=== PATIENT | male | born 1960 | race Caucasian/White ===

== ENCOUNTER 2022-05-20 15:25 | Inpatient (IN) | payer BC ==
[~2022-05-20] VITALS: Ht 7.6 cm; Wt 115.9 kg
[2022-05-20 17:12] LABS: BASO # 0.1 K/mm3 (0.0-0.2); BASO % 0.5 % (0.0-2.0); EOS # 0.3 K/mm3 (0.0-0.7); EOS % 3.1 % (0.0-4.0); GRAN # 8.5 K/mm3 (1.4-6.5); GRAN % 80.3 % (42.2-75.2); HEMOGLOBIN 17.1 g/dl (13.5-18.0); LYMPH # 0.7 K/mm3 (1.2-3.4); MEAN CELL VOLUME 88 fl (80.0-100.0); MEAN CORPUSCULAR HEMOGLOBIN 29 pg (27-31); MEAN CORPUSCULAR HGB CONC 33 g/dl (33.0-37.0); MEAN PLATELET VOLUME 9.1 fl (7.4-10.4); MONO # 0.9 K/mm3 (0.1-0.6); MONO % 8.6 % (1.7-9.3); PLATELET COUNT 273 K/mm3 (130-400); RED BLOOD COUNT 5.94 M/mm3 (4.20-5.60); REDCELL DISTRIBUTION WIDTH-CV 14.5 % (11.5-14.5)
[2022-05-20 17:15] LABS: HEMATOCRIT 52.1 % (42.0-52.0)
[2022-05-20 17:20] LABS: PROTHROMBIN TIME 11.7 SECONDS (9.7-12.8)
[2022-05-20 17:23] LABS: PARTIAL THROMBOPLASTIN TIME 34.6 SECONDS (26.0-37.0)
[2022-05-20 17:29] LABS: CALCIUM 10.3 mg/dL (8.4-10.2); CREATININE, serum 1.43 mg/dL (0.72-1.25); POTASSIUM 4.5 mmol/L (3.5-4.5)
[2022-05-20 17:32] LABS: D-DIMER < 200.00 ng/mLDDu (200-230)
[2022-05-20 17:47] LABS: TROPONIN-I 0.034 ng/mL (0.00-0.033)
[2022-05-20 17:50] LABS: THYROID STIMULATING HORMONE 0.191 uIU/mL (0.350-4.940)
[2022-05-20] MEDS ORDERED: COZAAR100 MG PO (20:25)
[2022-05-20] MEDS ORDERED: TOPROL XL 25MG25 MG PO (20:26)
[2022-05-20 21:20] VITALS: BP 177/101; PULSE 72; TEMP 98
[2022-05-20 22:14] LABS: MUCOUS Present (NOT PRESENT); SQUAMOUS EPITHELIAL 0-2 /hpf (0-10); URINE APPEARANCE Clear (CLEAR/HAZY); URINE BACTERIA Rare /hpf (NONE SEEN); URINE COLOR Yellow (YELLOW); URINE RBC 0-2 /hpf (0-2)
[2022-05-20 22:15] LABS: COLLECTION METHOD CLEAN CATCH; URINE BLOOD Negative (NEGATIVE); URINE GLUCOSE Negative (NEGATIVE); URINE KETONE Negative (NEGATIVE); URINE NITRATE Negative (NEGATIVE); URINE PROTEIN(semi-quant) Negative (NEGATIVE); URINE UROBILINOGEN 0.2 E.U/dL (0.2-1.0)
[2022-05-20 22:29] LABS: CREATININE, serum 1.43 mg/dL (0.72-1.25)
[2022-05-20 22:39] LABS: FRACTIONAL EXCRETION OF NA+ 0.88 %
[2022-05-20 23:06] VITALS: BP 148/90; PULSE 73; TEMP 98.3
[2022-05-21] VITALS (13 sets, daily range): BP systolic 139–172; BP diastolic 90–104; PULSE 61–87; TEMP 97.2–98.6
[2022-05-21 05:20] LABS: BASO # 0.1 K/mm3 (0.0-0.2); BASO % 0.5 % (0.0-2.0); EOS # 0.5 K/mm3 (0.0-0.7); EOS % 4.6 % (0.0-4.0); GRAN # 7.6 K/mm3 (1.4-6.5); GRAN % 77.2 % (42.2-75.2); HEMATOCRIT 49.4 % (42.0-52.0); HEMOGLOBIN 16.4 g/dl (13.5-18.0); LYMPH # 0.8 K/mm3 (1.2-3.4); LYMPH % 8.1 % (20.0-51.0); MEAN CELL VOLUME 87 fl (80.0-100.0); MEAN CORPUSCULAR HEMOGLOBIN 29 pg (27-31); MEAN CORPUSCULAR HGB CONC 33 g/dl (33.0-37.0); MONO # 0.9 K/mm3 (0.1-0.6); MONO % 9.2 % (1.7-9.3); PLATELET COUNT 270 K/mm3 (130-400); RED BLOOD COUNT 5.68 M/mm3 (4.20-5.60); REDCELL DISTRIBUTION WIDTH-CV 14.6 % (11.5-14.5)
[2022-05-21 05:41] LABS: ALBUMIN 3.3 gm/dL (3.4-4.8); BILIRUBIN,TOTAL 0.4 mg/dL (0.2-1.2); CALCIUM 9.9 mg/dL (8.4-10.2); CREATININE, serum 1.36 mg/dL (0.72-1.25); POTASSIUM 4.8 mmol/L (3.5-4.5); TOTAL PROTEIN 6.6 gm/dL (6.2-8.1)
[2022-05-21 05:46] LABS: TROPONIN-I 0.023 ng/mL (0.00-0.033)
--- NOTE | 2022-05-21 09:32 | NUR ---
Livestock Laborer met with patient to discuss discharge planning. Patient [place] of [place] with his , Shauna (ph#[phone]) and sees HARDY Lebdetter for primary care. Patient obtains medications from [facility] in [place] and does not use any DME besides a home blood pressure cuff. Patient is independent with ADLS and plans to return home at time of discharge. Patient does not have DPOA-HC and is not interested in completing one at this time. Discharge Plan: Home
--- NOTE | 2022-05-21 09:32 | NUR ---
Ophthalmic Aide met with patient to discuss discharge planning. Patient [place] of [place] with his , Shauna (ph#[phone]) and sees HARDY Ledbetter for primary care. Patient obtains medications from [facility] in [place] and does not use any DME besides a home blood pressure cuff. Patient is independent with ADLS and plans to return home at time of discharge. Patient does not have DPOA-HC and is not interested in completing one at this time. Discharge Plan: Home
--- NOTE | 2022-05-21 10:20 | NUR ---
Initial visit; Patient thanked Central Processing Technician for looking in on him and offering God's blessings.
--- NOTE | 2022-05-21 10:20 | NUR ---
Initial visit; Patient thanked Chief Service Dispatcher for looking in on him and offering God's blessings.
--- NOTE | 2022-05-21 17:53 | NUR ---
PATIENT HAD LEXISCAN STRESS TEST TODAY AND ECHO. EJECTION FRACTION IS AT 58%. ECHO RESULTS ARE PENDING. PATIENT IS ALERT AND ORIENTED, INDEPENDENT, AND IN GOOD SPIRITS. BLOOD PRESSURES WERE ELEVATED THIS AFTERNOON READING 164/98. NOTIFIED PROVIDER AND 10MG ONE TIME DOSE OF AMLODIPINE WAS ORDERED. PATIENT IS BACK ON HIS AHA DIET AND IS EATING DINNER.
--- NOTE | 2022-05-21 20:00 | NUR ---
Pt lying down in bed without any concerns or needs at this moment. A&O x4. VSS. Shift assessment completed. Left Hand INT CDI. No needs or concerns are voiced at this time. Tele on. Call light within reach.
[2022-05-22 00:29] VITALS: BP 133/81; PULSE 66; TEMP 98.1
[2022-05-22 04:32] VITALS: BP 119/86; PULSE 60; TEMP 97.8
--- NOTE | 2022-05-22 07:02 | NUR ---
Report given to ROE Melton. Pt had an uneventful night. No needs or concerns were expressed. He didn't any pain or discomfort. He denied SOB, chest pain, dizzines, etc. Call light is within reach.
[2022-05-22 08:37] VITALS: BP 155/100; PULSE 69; TEMP 97.6
[2022-05-22 11:46] VITALS: BP 131/84; PULSE 66; TEMP 97.5
[2022-05-22 15:35] VITALS: BP 120/94; PULSE 69; TEMP 97.4
--- NOTE | 2022-05-22 17:15 | NUR ---
THIS PATIENT IS INDEPENDENT. AXOX4. NO ISSUES TODAY. CONTINUING TO BE MONITORED OVERNIGHT BECAUSE OF NEW MEDICATION SOTOLOL. NSR ON THE MONITOR. PATIENT IS PLEASANT AND READY TO LEAVE.
--- NOTE | 2022-05-22 20:00 | NUR ---
Pt sitting up in bed. A&O x4. VSS. Shift assessment completed. All medication administered per emar. Pt states feeling ready to return home. He asked for assistance to use the shower. No pain or discomfort stated. Left Hand INT CDI, Tele on. Call light within reach.
[2022-05-22 20:40] VITALS: BP 137/77; PULSE 76; TEMP 98.4
[2022-05-23 00:46] VITALS: BP 127/87; PULSE 59; TEMP 97.7
--- NOTE | 2022-05-23 05:32 | NUR ---
Uneventful night. Medications administered per Emar. No needs or concerns expressed. Call light within reach.
--- NOTE | 2022-05-23 05:32 | NUR ---
Uneventful night. Medications administered per Emar. No needs or concerns expressed. Call light within reach.
[2022-05-23 05:47] VITALS: BP 123/89; PULSE 55; TEMP 97.7
--- NOTE | 2022-05-23 07:24 | NUR ---
SHIFT REPORT RECEIVED FROM ONESIMO HOLCOMB. PATIENT IS ON DAY 2 OF SOTALOL. ANTICIPATED DISCHARGE HOME TODAY. PATIENT IS A HEALTHY, ALERT AND ORIENTED MALE. ONLY TAKING PO MEDICATION TODAY. PATIENT IS ON ROOM AIR WITH ONE PERIPHERAL SITE. WILL ASSESS.
[2022-05-23 07:29] VITALS: BP 131/87; PULSE 57; TEMP 97.7
[2022-05-23] MEDS ORDERED: ELIQUIS 5MG PO (09:18)
[2022-05-23] MEDS ORDERED: BETAPACE 80MG80 MG PO (09:20)
[2022-05-23] MEDS ORDERED: NORVASC 5MG5 MG/TAB PO (09:20)
== END 2022-05-23 11:10 | disposition home or self-care (01) | DRG 281 ==
LOC: COL.ER 15:25 → MEDICAL 19:56
PROVIDERS: Emergency Medicine; Physician Assistant; ADMIT Family Medicine
DX: I48.0 Paroxysmal atrial fibrillation (principal); I21.A1 Myocardial infarction type 2; N17.9 Acute kidney failure, unspecified; I95.9 Hypotension, unspecified; I10 Essential (primary) hypertension; E83.52 Hypercalcemia; I47.20 Ventricular tachycardia, unspecified; Z87.891 Personal history of nicotine dependence; E03.9 Hypothyroidism, unspecified
CPT/HCPCS: A9500; J2785; J7120